=== PATIENT | female | born 1985 | race Hispanic/Latino ===

== ENCOUNTER 2024-12-31 18:49 | Emergency (ER) | payer OTHER ==
[~2024-12-31 18:49] MED LIST: PRENATAL VITAMINS; Z.0.TRAZODONE HCL300
[2024-12-31 18:59] VITALS: RESP 18; TEMP 99.8
[2024-12-31 19:35] LABS: INFLUENZA A AG NEGATIVE (NEGATIVE)
[2024-12-31 19:36] LABS: CORONAVIRUS COVID-19 AG NEGATIVE (NEGATIVE); INFLUENZA B AG NEGATIVE (NEGATIVE)
[2024-12-31 20:40] VITALS: PULSE 81; RESP 20; O2SAT 99
[2024-12-31] MEDS ORDERED: MEDROL4 M2 PO (20:43)
[2024-12-31] MEDS ORDERED: VENTOLIN HFA18 GM INH (20:43)
[2024-12-31] MEDS: ALBUTEROL/IPRATROPIUM 3 ML NEB NEB ONE (20:45)
[2024-12-31] MEDS: METHYLPREDNISOLONE SOD SUCC 125 MG/2ML VIAL IM ONE (20:58)
[2024-12-31 21:20] VITALS: PULSE 88
[2024-12-31 21:25] VITALS: BP 125/94; PULSE 81; RESP 20; O2SAT 100
== END 2024-12-31 21:30 | disposition home or self-care (01) ==
LOC: ER 20:27
DX: R06.02 Shortness of breath (principal); J06.9 Acute upper respiratory infection, unspecified; R05.9 Cough, unspecified; R06.2 Wheezing; Z11.52 Encounter for screening for COVID-19
CPT/HCPCS: 71045; 87428; 94640; 94799; 99284; J2919

== ENCOUNTER 2025-01-10 17:15 | Emergency (ER) | payer OTHER ==
[~2025-01-10] VITALS: Ht 154.9 cm; Wt 106.1 kg
[~2025-01-10 17:15] MED LIST changes: +MEDROL4 M2 PO; +VENTOLIN HFA18 GM INH
[2025-01-10 17:19] VITALS: TEMP 98.7
[2025-01-10] MEDS ORDERED: ALBUTEROL/IPRATROPIUM 3 ML NEB ONE (18:10)
[2025-01-10 18:16] VITALS: PULSE 78; RESP 17; O2SAT 97
[2025-01-10] MEDS: ALBUTEROL/IPRATROPIUM 3 ML NEB NEB STA (18:16)
[2025-01-10 18:52] LABS: BASOPHILS % 0.4 % (0.0-1.0); EOSINOPHILS # (AUTO) 0.8 (0.0-0.4); EOSINOPHILS % 10.6 % (0.0-6.0); HEMATOCRIT 37.3 % (34.2-44.1); HEMOGLOBIN 12.9 g/dL (12.0-16.0); LYMPHOCYTES # (AUTO) 2.1 (1.0-3.2); LYMPHOCYTES % 25.8 % (18.0-39.1); MEAN CORPUSCULAR HEMOGLOBIN 29.9 pg (28-32); MEAN CORPUSCULAR HGB CONC 34.6 g/dL (31-35); MEAN CORPUSCULAR VOLUME 86.5 fL (81-99); MONOCYTES # (AUTO) 0.5 (0.2-0.8); MONOCYTES % 6.2 % (4.4-11.3); NEUTROPHILS # (AUTO) 4.5 (2.1-6.9); NEUTROPHILS % 56.6 % (38.7-80.0); PLATELET COUNT 226 x10e3/uL (140-360); RED BLOOD COUNT 4.31 x10e6/uL (3.6-5.1); WHITE BLOOD COUNT 7.94 x10e3/uL (4.8-10.8)
[2025-01-10 19:14] LABS: ALANINE AMINOTRANSFERASE 12 IU/L (0-55); ALBUMIN 3.7 g/dL (3.5-5.0); ALBUMIN/GLOBULIN RATIO 1.1 (0.8-2.0); ALKALINE PHOSPHATASE 63 IU/L (40-150); ANION GAP 11.9 mmol/L (8-16); BILIRUBIN,TOTAL 0.7 mg/dL (0.2-1.2); BLOOD UREA NITROGEN 9 mg/dL (7-26); BUN/CREATININE RATIO 13 (6-25); CALCIUM 8.5 mg/dL (8.4-10.2); CARBON DIOXIDE 21 mmol/L (22-29); CHLORIDE 107 mmol/L (98-107); CREATINE KINASE 65 IU/L (29-168); EST GLOMERULAR FILTRATION RATE 113 ML/MIN (>=60); GLUCOSE 91 mg/dL (74-118); POTASSIUM 3.9 mmol/L (3.5-5.1); SODIUM 136 mmol/L (136-145); TOTAL PROTEIN 7.1 g/dL (6.5-8.1)
[2025-01-10 19:28] LABS: TROPONIN I < 0.001 ng/mL (0-0.300)
[2025-01-10] MEDS ORDERED: PREDNISONE20 MG PO (19:55)
[2025-01-10] MEDS ORDERED: AZITHROMYCIN250 MG PO (19:55)
[2025-01-10] MEDS ORDERED: VENTOLIN HFA18 GM INH (19:55)
[2025-01-10 20:00] VITALS: PULSE 91; RESP 19
[2025-01-10] MEDS: ACETAMINOPHEN 325 MG TAB PO STA (20:05)
[2025-01-10 20:16] VITALS: BP 125/84; PULSE 80; RESP 18; O2SAT 99
== END 2025-01-10 20:06 | disposition home or self-care (01) ==
LOC: ER 17:19
DX: R06.02 Shortness of breath (principal); R07.89 Other chest pain; J04.0 Acute laryngitis; I10 Essential (primary) hypertension; Z98.84 Bariatric surgery status
CPT/HCPCS: 36415; 71045; 80053; 82550; 83690; 83880; 84484; 85025; 85379; 93005; 94640; 94799; 99284